=== PATIENT | male | born 1960 | race Caucasian/White ===

== ENCOUNTER 2019-05-03 18:08 | Emergency (ER) | payer OTHER ==
[~2019-05-03] VITALS: Ht 175.3 cm; Wt 89.7 kg
[2019-05-03] MEDS ORDERED: iohexol 300mg/ml 100ml inj. ONE (19:23)
[2019-05-03 19:35] LABS: BASOPHILS # (AUTO) 0.1 X10'3 (0-0.2); BASOPHILS % (AUTO) 1.1 % (0-1); EOSINOPHILS # (AUTO) 0.1 X10'3 (0-0.9); EOSINOPHILS % (AUTO) 2.2 % (0-6); HEMATOCRIT 44.9 % (42.0-52.0); HEMOGLOBIN 15.5 g/dl (14.0-17.9); LYMPHOCYTES # (AUTO) 1.5 X10'3 (1.1-4.8); LYMPHOCYTES % (AUTO) 23.5 % (21-51); MEAN CORPUSCULAR HEMOGLOBIN 30.8 PG (27.0-31.0); MEAN CORPUSCULAR HGB CONC 34.5 g/dL (33.0-36.5); MEAN CORPUSCULAR VOLUME 89.1 FL (78-98); MEAN PLATELET VOLUME 8.9 FL (7.4-10.4); MONOCYTES # (AUTO) 0.5 X10'3 (0-0.9); MONOCYTES % (AUTO) 6.9 % (2-12); NEUTROPHILS # (AUTO) 4.3 X10'3 (1.8-7.7); NEUTROPHILS % (AUTO) 66.3 % (42-75); PLATELET COUNT 163 X10'3 (140-440); RED BLOOD COUNT 5.04 X10'6 (4.70-6.10); RED CELL DISTRIBUTION WIDTH 13.5 % (11.5-14.5); WHITE BLOOD COUNT 6.5 X10'3 (4.5-11.0)
[2019-05-03 19:49] LABS: ALANINE AMINOTRANSFERASE 75 U/L (12-78); ALBUMIN 3.9 G/DL (3.4-5.0); ALKALINE PHOSPHATASE 113 IU/L (46-116); ANION GAP 6 (8-16); ASPARTATE AMINO TRANSFERASE 43 U/L (10-37); BILIRUBIN,TOTAL 0.6 MG/DL (0.1-1.0); BLOOD UREA NITROGEN 18 MG/DL (7-18); BUN/CREATININE RATIO 19.6 (5.4-32.0); CALCIUM 9.1 MG/DL (8.5-10.1); CHLORIDE 101 MMOL/L (99-107); CREATININE 0.92 MG/DL (0.60-1.10); GLUCOSE 323 MG/DL (70-104); SODIUM 136 MMOL/L (135-145); TOTAL CARBON DIOXIDE 29.2 MMOL/L (24-32); TOTAL PROTEIN 7.8 G/DL (6.4-8.2); eGFR 84 ML/MIN
--- NOTE | 2019-05-03 21:58 | NUR ---
spoke to christiano esparza regarding pt plan of care told the pt and christiano esparza will be here to talk to you,pt and verbalized understanding denies any concern.
[2019-05-03] MEDS ORDERED: morphine 4 MG/ML inj SYRINge IV ONE (22:15)
[2019-05-03] MEDS ORDERED: ketorolac tromethamine 15mg/ml inj. IV ONE (22:25)
[2019-05-03 22:34] VITALS: BP 157/95
--- NOTE | 2019-05-03 22:54 | NUR ---
pt informed that [facility] do not have bed available ,provider is on phone with yahaira .pt and verbalized understanding.
--- NOTE | 2019-05-03 23:15 | NUR ---
isaias at bedside to explain the pt about d/c instruction and plan of care.
== END 2019-05-03 23:20 | disposition home or self-care (01) ==
LOC: ER 18:08
DX: H05.20 Unspecified exophthalmos (principal); R20.0 Anesthesia of skin; R53.1 Weakness; H53.8 Other visual disturbances
CPT/HCPCS: 36415; 70487; 80053; 84443; 85025; 96374; 99285; J1885; J2270; Q9967; 99284